=== PATIENT | female | born 1985 | race American Indian/Alaskan Native ===

== ENCOUNTER 2016-12-27 01:34 | Emergency (ER) | payer MEDICAID, OTHER ==
[2016-12-27 02:39] VITALS: BP 137/79
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
[2016-12-27] MEDS ORDERED: TORADOL IM ONE (03:34)
== END 2016-12-27 04:40 | disposition home or self-care (01) ==
LOC: ED 01:34
DX: M54.5 Low back pain (principal); V43.52XA Car driver injured in collision with other type car in traffic accident, initial encounter; Y92.412 Parkway as the place of occurrence of the external cause; Y93.89 Activity, other specified; Y99.8 Other external cause status
CPT/HCPCS: 96372; 99282; J1885

== ENCOUNTER 2017-10-26 01:08 | Emergency (ER) | payer SELFPAY ==
[2017-10-26 06:16] LABS: HCG Qualitative,Urine Positive (Negative)
[2017-10-26 06:20] LABS: Amorphous Crystals,Urine Few; Bacteria,Urine 1+ /HPF (Negative); Bilirubin,Urine NEG (Negative); Blood,Urine MOD (Negative); Color,Urine Yellow (Yellow); Mucus,Urine FEW /HPF; Nitrite,Urine NEG (Negative); Protein,Urine <15 mg/dL mg/dL (Negative); Urobilinogen,Urine < 2.0 mg/dL (<2.0)
[2017-10-26 06:29] VITALS: BP 127/59
== END 2017-10-26 14:00 | disposition left against medical advice (07) ==
LOC: ED 01:08
DX: Z53.21 Procedure and treatment not carried out due to patient leaving prior to being seen by health care provider (principal)
CPT/HCPCS: 81001; 81025

== ENCOUNTER 2019-05-03 16:18 | Outpatient (CLI) | payer MEDICAID ==
[2019-05-03] MEDS ORDERED: TYLENOL PO ONE (17:17)
[2019-05-03 18:26] VITALS: BP 125/56
[2019-05-03 20:05] LABS: Bacteria,Urine 2+ /HPF (Negative); Bilirubin,Urine NEG (Negative); Blood,Urine NEG (Negative); Color,Urine Amber (Yellow); Mucus,Urine 3+ /HPF
--- NOTE | 2019-05-03 20:22 | Ultrasound Report ---
ULTRASOUND BIOPHYSICAL PROFILE Limited OB US Indication: FATUMA; non continuous tracing with questionable ansley. Comparison: None Findings: breathing movement = 2 Gross body movement = 2 tone = 2 Qualitative amniotic fluid volume = 2 Total biophysical score = 8/8 Amniotic fluid index is 15.4 cm. Presentation is cephalic. heart rate is 145 beats per minute. Impression: biophysical profile equals 8/8. Signer Name: Rylan Dunbar MD Signed: 05/03/2019 8:17 PM Workstation Name: [id number]
== END 2019-05-03 20:42 | disposition home or self-care (01) ==
LOC: TRG 16:18
PROVIDERS: ATTEND Obstetrics & Gynecology
DX: O47.03 False labor before 37 completed weeks of gestation, third trimester (principal); Z3A.37 37 weeks gestation of pregnancy
CPT/HCPCS: 59025; 76815; 76819; 81001; 87086

== ENCOUNTER 2019-05-17 12:56 | Outpatient (CLI) | payer MEDICAID ==
[2019-05-17 13:29] VITALS: BP 112/58
== END 2019-05-17 15:00 | disposition home or self-care (01) ==
LOC: TRG 12:56
PROVIDERS: ATTEND Obstetrics & Gynecology
DX: O47.1 False labor at or after 37 completed weeks of gestation (principal); Z3A.39 39 weeks gestation of pregnancy
CPT/HCPCS: 59025

== ENCOUNTER 2019-05-21 08:31 | Outpatient (CLI) | payer MEDICAID ==
[2019-05-21 11:18] VITALS: BP 121/56
[2019-05-21] MEDS ORDERED: VISTARIL PO ONE (12:26)
== END 2019-05-21 11:55 | disposition home or self-care (01) ==
LOC: TRG 08:31
PROVIDERS: ATTEND Obstetrics & Gynecology
DX: O47.1 False labor at or after 37 completed weeks of gestation (principal); Z3A.40 40 weeks gestation of pregnancy
CPT/HCPCS: 59025; Q0177

== ENCOUNTER 2019-05-27 16:45 | Inpatient (IN) | payer MEDICAID ==
[2019-05-27] MEDS ORDERED: XYLOCAINE 2% INFILTRATI ONE (16:53)
[2019-05-27] MEDS ORDERED: BRETHINE IVP PRN (16:53)
[2019-05-27] MEDS ORDERED: MINERAL OIL PO PRN (16:53)
[2019-05-27] MEDS ORDERED: BRETHINE SUB-Q PRN (16:53)
[2019-05-27] MEDS ORDERED: SUBLIMAZE IV PRN (16:53)
[2019-05-27] MEDS ORDERED: PITOCin/NS 30 UNIT/500ML 30 UNITS/500 ML BAG IV SCH ×2 (17:00)
[2019-05-27] MEDS ORDERED: PITOCin/NS 20 UNIT/1000ML DRIP 20 UNITS/1,000 ML BAG IV SCH (17:00)
--- NOTE | 2019-05-27 17:00 | History and Physical Report ---
History of Present Illness Date of examination: 05/27/19 Date of admission: 05/27/19 16:45 Chief complaint: nonreactive NST in office, early labor History of present illness: EDC Calculations LMP: 05/19/2019 Past History : 4 Term Births: 2 Premature Births: 0 Living Children: 2 Para: 2 Mult. Births: 0 Prev : 0 Prev. attempt? 0 Aborta: 1 Elect. Ab: 0 Spont. Ab: 1 Ectopics: 0 # 1 Delivery date: 04/15/2010 Weeks Gestation: 40 labor: no Delivery type: Delivery location: [facility] Infant Sex: Male weight: 6-10 # 2 Delivery date: 05/03/2016 Weeks Gestation: 41 Delivery type: Vaginal Anesthesia type: epidural Delivery location: [facility] Sex: female weight: 7.13 Comments: postdates; meconium # 3 Delivery date: 11/02/2016 Weeks Gestation: 11 Delivery type: SAB Comments: exp. mgmt Past Medical History: Reviewed history from 10/04/2015 and no changes required: Negative Past Medical History migraines. 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 FOB involved "Germán" denies etoh, drugs, previous smoker quit aug 2018 Infection History Hx of STD: chlamydia HIV Risk Eval: low risk Hepatitis B Risk Eval: low risk Personal hx. of genital herpes: no Partner hx. of genital herpes: no Rash, Viral, or Febrile illness since last LMP? no Varicella/Chicken Pox Status: Previous Disease TB Risk: no Infection History Comments: 2009 Genetic History Congenital Heart Defect: Mom: no Dad: no Cristina Disease: Mom: no Dad: no Thalassemia Mom: no Dad: no Neural Tube Defect Mom: no Dad: no Down's Syndrome Mom: no Dad: no Neo-Sachs Mom: no Dad: no Sickle Cell Disease/Trait Mom: no Dad: no Hemophilia Mom: no Dad: no Muscular Dystrophy Mom: no Dad: no Cystic Fibrosis Mom: no Dad: no Alexander Chorea Mom: no Dad: no Mental Retardation Mom: no Dad: no Fragile X Mom: no Dad: no Other Genetic/Chromosomal Disorder Mom: no Dad: no Child w/other defect Mom: no Dad: no Enviromental Exposures Enviromental Exposures Reviewed Xray Exposure: no Medication, drug, or alcohol use since LMP: no Chemical/Other Exposure: no Exposure to Cat Liter: no Hx of Parvovirus (Fifth Disease): no Current Allergies (reviewed today): No known allergies Past History Past Medical History: other (see HPI) Past Surgical History: other (see HPI) 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) Family/Genetic History: other (see HPI) - Obstetrical History Expected Date of Delivery: 05/19/19 Actual Gestation: 41 Week(s) 1 Day(s) : 4 Para: 2 Hx # Term Pregnancies: 2 Number of Pregnancies: 0 Spontaneous Abortions: 1 Induced : 0 Number of Living Children: 2 Medications and Allergies Allergies Allergy/AdvReac Type Severity Reaction Status Date / Time No Known Allergies Allergy Verified 05/03/19 17:20 Home Medications Medication Instructions Recorded Confirmed Last Taken Type Multivit-Min/Folic Acid/[id number] 1 each PO DAILY 05/03/19 05/03/19 Unknown History [Alive Women's Gummy Vitamins] Review of Systems All systems: negative - Physical Exam Breasts: Positive: normal Cardiovascular: Regular rate Lungs: Positive: Clear to auscultation, Normal air movement Abdomen: Positive: normal appearance, soft Genitourinary (Female): Positive: normal external genitalia, normal perenium Vulva: both: normal Vagina: Positive: normal moisture Uterus: Positive: normal size, normal contour Anus/Rectum: Positive: normal perianal skin Extremities: Positive: normal - Obstetrical FHR: category 1 Uterine Contraction Monitor Mode: External Cervical Dilatation: 5 Cervical Effacement Percentage: 80 station: -2 Uterine Contraction Frequency (min): 2-3 Uterine Contraction Duration: 60 Uterine Contraction Pattern: Regular Uterine Tone Measurement Phase: Contraction Uterine Contraction Intensity: Mild Results All other labs normal. Assessment and Plan 33y/o @ 41+1 weeks, admitted for augmentation of labor. Admission orders entered. GBS NEG. Last EFW by [facility] 05/09/19 6#15oz. - Patient Problems (1) 41 weeks gestation of Current Visit: Yes Status: Acute (2) Non-reactive NST (non-stress test) Current Visit: Yes Status: Acute Plan to address problem: continued monitoring Augmentation of labor Epidural PRN. Anticipate .
[2019-05-27] MEDS: LACTATED RINGERS 1,000 ML IV SCH ×2 (17:48→19:05)
[2019-05-27 18:06] LABS: Hemoglobin 9.4 gm/dl (10.1-14.3); Mean Corpuscular HGB Conc 31 % (30-34); Mean Corpuscular Volume 74 fl (79-97); Platelet Count 270 K/mm3 (140-440); Red Blood Count 4.05 M/mm3 (3.65-5.03)
[2019-05-27 18:07] LABS: Red Cell Distribution Width 20.9 % (13.2-15.2)
--- NOTE | 2019-05-27 19:08 | Progress Note ---
Assessment and Plan pt comfortable with epidural SVE 6-7,80,-1 Meconium stained fluid NICU notified Re-eval as needed - Patient Problems (1) Meconium in amniotic fluid Onset Date: ~05/27/19 Current Visit: Yes Status: Acute Plan to address problem: meconium stained fluid NICU notified Subjective - Subjective Date of service: 05/27/19 (comfortable with epidural) Principal diagnosis: IUP @ 41 weeks labor meconium Patient reports: movement normal Objective - Vital Signs Vital Signs: Vital Signs - 12hr 05/27/19 05/27/19 05/27/19 17:04 17:08 18:24 Temperature 98.1 F Pulse Rate 85 82 Respiratory 18 Rate Blood Pressure 133/71 136/70 O2 Sat by Pulse Oximetry 05/27/19 05/27/19 05/27/19 18:27 18:32 18:37 Temperature Pulse Rate 77 78 78 Respiratory Rate Blood Pressure O2 Sat by Pulse 100 100 100 Oximetry 05/27/19 05/27/19 05/27/19 18:42 18:45 18:47 Temperature Pulse Rate 89 84 82 Respiratory Rate Blood Pressure 127/81 O2 Sat by Pulse 94 97 Oximetry 05/27/19 05/27/19 05/27/19 18:49 18:50 18:51 Temperature Pulse Rate 99 H 95 H 92 H Respiratory Rate Blood Pressure 148/78 141/75 O2 Sat by Pulse 62 L Oximetry 05/27/19 05/27/19 05/27/19 18:52 18:53 18:55 Temperature Pulse Rate 94 H 98 H 96 H Respiratory Rate Blood Pressure 139/74 145/68 O2 Sat by Pulse 100 Oximetry 05/27/19 05/27/19 05/27/19 18:57 18:59 19:01 Temperature Pulse Rate 121 H 108 H 122 H Respiratory Rate Blood Pressure 154/90 154/65 O2 Sat by Pulse 100 Oximetry - Exam Breasts: deferred Abdomen: Present: normal appearance, soft. Absent: distention, tenderness Uterus: Present: normal FHR: auscultation normal, category 1 Uterine Contraction Monitor Mode: External Cervical Dilatation: 6.5 (SROM meconium) Cervical Effacement Percentage: 80 station: -1 Uterine Contraction Pattern: Regular Uterine Tone Measurement Phase: Resting Uterine Contraction Intensity: Moderate Extremities: normal Deep Tendon Reflex Grade: Normal +2 - Labs Labs: Abnormal Labs 05/27/19 17:40 Hgb 9.4 L Hct 30.0 L MCV 74 L MCH 23 L RDW 20.9 H Laboratory Results - last 24 hr 05/27/19 05/27/19 17:40 17:40 WBC 8.3 RBC 4.05 Hgb 9.4 L Hct 30.0 L MCV 74 L MCH 23 L MCHC 31 RDW 20.9 H Plt Count 270 Blood Type A POSITIVE Antibody Screen Negative
[2019-05-27] MEDS ORDERED: fentaNYL-BUPIV 2 MCG/ML-0.125% 200 MCG/100 ML BAG EPIDURAL ONE (19:30)
[2019-05-27] MEDS ORDERED: BENADRYL PO PRN (22:09)
[2019-05-27] MEDS ORDERED: TYLENOL PO PRN (22:09)
[2019-05-27] MEDS ORDERED: PHENERGAN PO PRN (22:09)
[2019-05-27] MEDS ORDERED: MILK OF MAGNESIA PO PRN (22:09)
[2019-05-27] MEDS ORDERED: TUCKS PAD TP PRN (22:09)
[2019-05-27] MEDS ORDERED: DULCOLAX PR PRN (22:09)
[2019-05-27] MEDS ORDERED: ZOFRAN IV PRN (22:09)
[2019-05-27] MEDS ORDERED: LANSINOH TP PRN (22:09)
--- NOTE | 2019-05-27 22:20 | Procedure Note ---
OB Delivery Note - Delivery Date of Delivery: 05/27/19 Arts Administrator: GRISELDA SEVILLA Estimated blood loss: 300cc - Vaginal Delivery presentation: vertex Delivery position: OA Intrapartum events: meconium, mult.variable deceleratio Delivery induction: none Delivery augmentation: pitocin Delivery monitor: external uterine, internal FHT Route of delivery: Delivery placenta: spontaneous Delivery cord: 3 umbilical vessels Episiotomy: none Delivery laceration: 2nd degree Delivery repair: vicryl Anesthesia: epidural Delivery comments: deep variables with Q 3-4 ctx SVE C,C,0 NICU team in room with Pt pushed X 23 min live born girl over intact perineum. Baby to mom's abdomen, floppy Cord c lamped and cut passed to waiting NICU team. Placenta and membrane delivered complete and intact, 3 vessel cord. Pitocin IVFs 2nd degree laceration repaired with 2-0 vicryl. 8/9, EBL 300, Wgt 7-12. Placenta to pathology. mom and baby remain LDR stable. - A at 1 minute: 8 at 5 minutes: 9 Infant Gender: Female (wgt 7-12)
[2019-05-27] MEDS ORDERED: SODIUM CHLORIDE FLUSH SYRINGE 10 ML IV NR (23:00)
[2019-05-28] MEDS: IBUPROFEN PO SCH ×3 (00:21→16:32)
[2019-05-28] MEDS ORDERED: NORCO 5/325 PO PRN (02:11)
[2019-05-28] MEDS ORDERED: M-M-R II VACCINE SUB-Q ONE (06:00)
[2019-05-28] MEDS ORDERED: BOOSTRIX IM ONE (06:00)
--- NOTE | 2019-05-28 08:46 | Progress Note ---
Assessment and Plan Patient resting comfortably in bed, reports feeling well, denies any complaints or concerns. FF, ML, U/1. Vaginal bleeding is small, patient denies any heavy bleeding or clots. She reports pain is well controlled with medication. She is breast and bottle feeding, reports both are going well, denies any breast complaints. Awaiting post delivery H&H to be drawn, she denies any dizziness or feeling faint with ambulation or position changes. Encouraged increased water intake, frequent ambulation. VSSAF. Continue POC. Subjective - Subjective Principal diagnosis: PPD1 >12 hrs s/p Patient reports: appetite normal, voiding normally, pain well controlled, ambulating normally : doing well Objective - Vital Signs Latest vital signs: Vital Signs Temp Pulse Resp BP BP Pulse Ox 05/28/19 06:15 98.2 F 68 20 120/54 98 05/28/19 00:47 18 05/28/19 00:10 98.3 F 81 20 134/63 100 05/27/19 23:34 86 88 05/27/19 23:31 80 100 05/27/19 23:26 100 H 99 05/27/19 23:22 93 H 133/60 05/27/19 23:21 94 H 100 05/27/19 23:16 76 99 05/27/19 23:11 96 H 96 05/27/19 23:06 90 136/62 99 05/27/19 23:01 103 H 100 05/27/19 22:57 110 H 93 05/27/19 22:56 100 H 100 05/27/19 22:52 90 135/61 05/27/19 22:51 92 H 98 05/27/19 22:46 93 H 100 05/27/19 22:41 100 H 97 05/27/19 22:39 108 H 91 05/27/19 22:36 101 H 98 05/27/19 22:35 96 H 157/66 05/27/19 22:31 97 H 99 05/27/19 22:26 102 H 98 05/27/19 22:21 101 H 97 05/27/19 22:16 108 H 98 05/27/19 22:11 106 H 99 05/27/19 22:06 109 H 100 05/27/19 21:27 89 100 05/27/19 21:22 66 100 05/27/19 21:17 84 100 05/27/19 21:12 75 100 05/27/19 21:10 77 126/59 05/27/19 21:07 87 100 05/27/19 21:05 74 83 L 05/27/19 21:02 74 100 05/27/19 20:57 83 100 05/27/19 20:52 72 100 05/27/19 20:47 74 100 05/27/19 20:42 78 94 05/27/19 20:40 71 106/53 05/27/19 20:39 76 94 05/27/19 20:37 95 H 98 05/27/19 20:33 77 93 05/27/19 20:32 76 95 05/27/19 20:28 79 L 05/27/19 20:27 86 96 05/27/19 20:22 82 98 05/27/19 20:17 89 95 05/27/19 20:13 18 110/55 05/27/19 20:12 82 99 05/27/19 20:07 88 98 05/27/19 20:02 87 100 05/27/19 20:01 115 H 110/55 05/27/19 19:57 112 H 100 05/27/19 19:53 100 H 121/55 05/27/19 19:52 99 H 100 05/27/19 19:47 103 H 100 05/27/19 19:43 113 H 147/128 05/27/19 19:42 122 H 99 05/27/19 19:37 137 H 98 05/27/19 19:32 111 H 143/63 100 05/27/19 19:27 99 H 100 05/27/19 19:22 117 H 96 05/27/19 19:17 100 H 100 05/27/19 19:13 97.6 F 96 H 18 121/55 05/27/19 19:12 109 H 100 05/27/19 19:11 111 H 222/104 05/27/19 19:09 107 H 154/70 05/27/19 19:07 108 H 100 05/27/19 19:05 111 H 165/74 05/27/19 19:03 110 H 161/70 05/27/19 19:02 121 H 100 05/27/19 19:01 122 H 154/65 05/27/19 18:59 108 H 154/90 05/27/19 18:57 121 H 100 05/27/19 18:55 96 H 145/68 05/27/19 18:53 98 H 139/74 05/27/19 18:52 94 H 100 05/27/19 18:51 92 H 141/75 05/27/19 18:50 95 H 148/78 05/27/19 18:49 99 H 62 L 05/27/19 18:47 82 97 05/27/19 18:45 84 127/81 05/27/19 18:42 89 94 05/27/19 18:37 78 100 05/27/19 18:32 78 100 05/27/19 18:27 77 100 05/27/19 18:24 82 136/70 05/27/19 17:08 85 133/71 05/27/19 17:04 98.1 F 18 Intake and Output 05/27/19 05/28/19 05/28/19 23:59 07:59 15:59 Intake Total 162.517 Output Total 500 1250 Balance -337.483 -1250 Intake: IV 162.517 Lactated Ringers 1,000 ml 160.417 @ 125 mls/hr IV DIRECT MYRTLE Rx#:[id number] PITOCin/NS 30 UNIT/500ML 2.1 30 units In 500 ml @ 4 mls/hr IV TITR MYRTLE Rx#: [id number] Output: Urine 500 1250 Indwelling 200 Indwelling Catheter 300 Void 1250 Other: Total, Output Amount 300 650 Weight 108.409 kg Estimated Blood Loss 300 - Exam Breasts: Present: normal Cardiovascular: Present: Regular rate, Normal S1 Lungs: Present: Clear to auscultation, Normal air movement Abdomen: Present: normal appearance, soft, normal bowel sounds Vulva: both: normal Uterus: Present: normal, firm, fundal height below umbilicus Extremities: Present: normal - Labs Labs: Abnormal lab results 05/27/19 Range/Units 17:40 Hgb 9.4 L (10.1-14.3) gm/dl Hct 30.0 L (30.3-42.9) % MCV 74 L (79-97) fl MCH 23 L (28-32) pg RDW 20.9 H (13.2-15.2) %
[2019-05-28] MEDS: FEOSOL PO SCH (10:03)
[2019-05-28] MEDS: PRENATAL VITAMIN PO SCH (10:03)
[2019-05-28] MEDS: COLACE PO SCH (10:03)
[2019-05-28 11:19] LABS: Hematocrit 27.1 % (30.3-42.9); Hemoglobin 8.7 gm/dl (10.1-14.3)
[2019-05-29] MEDS: FEOSOL PO SCH ×2 (00:03→09:02)
[2019-05-29] MEDS: IBUPROFEN PO SCH ×2 (00:03→07:38)
[2019-05-29] MEDS: COLACE PO SCH ×2 (00:03→09:02)
--- NOTE | 2019-05-29 06:16 | Discharge Summary ---
Providers - Providers Date of Admission: 05/27/19 16:45 Date of discharge: 05/29/19 (pt agrees with d/c) Attending physician: JOSE ALEJANDRO ZAPATA Primary care physician: DANITA LUEVANO Hospitalization Reason for admission: active labor, IUP at term Delivery: Episiotomy: none Laceration: 2nd degree Incision: normal, dry, intact Other procedures: none complications: none Discharge diagnosis: IUP at term delivered baby: female Hospital course: uncomplicated vaginal delivery Resting No c/o voiced VSS FF below umb Lochia small Perineum slight swelling intact. H&H 05/27 drop r/t blood loss from delivery Asymptomatic Doing well s/p vag delivery. P: d/c today with instructions RTO 4 weeks Desires [facility] for BC. Condition at discharge: Good Disposition: DC-01 TO HOME OR SELFCARE - Discharge Diagnoses (1) Normal spontaneous vaginal delivery Status: Acute Comment: RTO 4 weeks PP care Plan - Provider Discharge Summary Activity: routine, no sex for 6 weeks, no heavy lifting 4 weeks, no strenuous exercise Diet: routine Instructions: routine Additional instructions: [] Smoking cessation referral if applicable(refer to patient education folder for contact #) [] Refer to [facility] Booklet Call your doctor immediately for: * Fever > 100.5 * Heavy vaginal bleeding ( >1 pad per hour) * Severe persistent headache * Shortness of breath * Reddened, hot, painful area to leg or breast * Drainage or odor from incision. * Keep incision clean and dry at all times and follow doctor's instructions regarding bathing/showering - Follow up plan Follow up: DANITA LUEVANO MD [Primary Care Provider] - 06/30/19 (Congratulations! Please call [phone] to schedule your visit in 4 weeks. Take Motrin/ibuprofen for cramping/pain. Call with any concerns.)
[2019-05-29 08:23] VITALS: BP 120/54
[2019-05-29] MEDS: PRENATAL VITAMIN PO SCH (09:02)
== END 2019-05-29 12:20 | disposition home or self-care (01) | DRG 775 ==
LOC: LD 16:45 → OB 23:55
PROVIDERS: ADMIT Obstetrics & Gynecology; ATTEND Obstetrics & Gynecology
PROC: 10E0XZZ Delivery of Products of Conception, External Approach (ICD-10-PCS; principal; 2019-05-27)
PROC: 0KQM0ZZ Repair Perineum Muscle, Open Approach (ICD-10-PCS; 2019-05-27)
PROC: 3E0R3BZ Introduction of Anesthetic Agent into Spinal Canal, Percutaneous Approach (ICD-10-PCS; 2019-05-27)
PROC: 00HU33Z Insertion of Infusion Device into Spinal Canal, Percutaneous Approach (ICD-10-PCS; 2019-05-27)
PROC: 3E0234Z Introduction of Serum, Toxoid and Vaccine into Muscle, Percutaneous Approach (ICD-10-PCS; 2019-05-28)
DX: O77.0 Labor and delivery complicated by meconium in amniotic fluid (principal); Z3A.41 41 weeks gestation of pregnancy; Z37.0 Single live birth; Z23 Encounter for immunization; O99.354 Diseases of the nervous system complicating childbirth; G43.909 Migraine, unspecified, not intractable, without status migrainosus; O76 Abnormality in fetal heart rate and rhythm complicating labor and delivery; O70.1 Second degree perineal laceration during delivery
CPT/HCPCS: 36415; 85014; 85018; 85027; 86592; 86850; 86900; 86901; 88307; G0378; J2590; J7120

== ENCOUNTER 2021-04-25 08:14 | Inpatient (IN) | payer MEDICAID ==
[2021-04-25] MEDS ORDERED: miSOPROStol 200 MCG TAB PR PRN (10:13)
[2021-04-25] MEDS ORDERED: MINERAL OIL 30 ML ORAL LIQD PO PRN (10:13)
[2021-04-25] MEDS ORDERED: CARBOPROST TROMETHAMINE 250 MCG/1 ML INJ IM PRN (10:13)
[2021-04-25] MEDS ORDERED: METHYLERGONOVINE MALEATE 0.2 MG/ML VIAL IM PRN (10:13)
[2021-04-25] MEDS ORDERED: LOPERAMIDE 2 MG CAP PO PRN (10:13)
[2021-04-25] MEDS ORDERED: OXYTOCIN 10 UNIT/1 ML INJ IM PRN (10:13)
[2021-04-25] MEDS ORDERED: BUTORPHANOL 2 MG/1 ML INJ IV PRN (10:13)
[2021-04-25] MEDS ORDERED: ONDANSETRON 4 MG/2 ML INJ IV PRN (10:13)
[2021-04-25] MEDS ORDERED: NALOXONE 0.4 MG/1 ML INJ IV PRN (10:13)
[2021-04-25] MEDS ORDERED: TERBUTALINE 1 MG/1 ML INJ SUB-Q PRN (10:13)
[2021-04-25] MEDS ORDERED: ePHEDrine SULFATE 50 MG/1 ML INJ IV PRN ×2 (10:13→14:03)
--- NOTE | 2021-04-25 10:13 | History and Physical Report ---
History of Present Illness Date of examination: 04/25/21 Date of admission: 04/25/21 08:14 Chief complaint: here to be induced History of present illness: EDC Confirmation: 04/14/2021 Past History : 5 Term Births: 3 Premature Births: 0 Living Children: 3 Para: 3 Mult. Births: 0 Prev : 0 Prev. attempt? 0 Aborta: 1 Elect. Ab: 0 Spont. Ab: 1 Ectopics: 0 # 1 Delivery date: 04/15/2010 Weeks Gestation: 40 labor: no Delivery type: Delivery location: [facility] Infant Sex: Male weight: 6-10 # 2 Delivery date: 05/03/2016 Weeks Gestation: 41 Delivery type: Vaginal Anesthesia type: epidural Delivery location: [facility] Infant Sex: female weight: 7.13 Comments: postdates; meconium # 3 Delivery date: 11/02/2016 Weeks Gestation: 11 Delivery type: SAB Comments: exp. mgmt # 4 Delivery date: 05/27/2019 Weeks Gestation: 41 Delivery type: Vaginal Anesthesia type: epidural Delivery location: [facility] Infant Sex: female weight: 7.75 Comments: meconium Past Medical History: migraines. "every other month" Past Surgical History: Reviewed history from 12/06/2018 and no changes required: foot surgery 1998 right Denies any prior history of complications from anesthesia. Denies any history of surgical complications. 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 Denies any history of surgical complications. 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 FOB involved "Germán" denies etoh, drugs, previous smoker quit aug 2018 Infection History Hx of STD: chlamydia HIV Risk Eval: no Hepatitis B Risk Eval: low risk Personal hx. of genital herpes: no Partner hx. of genital herpes: no Rash, Viral, or Febrile illness since last LMP? no Varicella/Chicken Pox Status: Immunized TB Risk: no Genetic History ADVANCED MATERNAL AGE Congenital Heart Defect: Mom: no Dad: no Cristina Disease: Mom: no Dad: no Thalassemia Mom: no Dad: no Neural Tube Defect Mom: no Dad: no Down's Syndrome Mom: no Dad: no Neo-Sachs Mom: no Dad: no Sickle Cell Disease/Trait Mom: no Dad: no Hemophilia Mom: no Dad: no Muscular Dystrophy Mom: no Dad: no Cystic Fibrosis Mom: no Dad: no [place] Chorea Mom: no Dad: no Mental Retardation Mom: no Dad: no Fragile X Mom: no Dad: no Other Genetic/Chromosomal Disorder Mom: no Dad: no Child w/other defect Mom: yes Dad: no Comments/Counseling: son had "heart defect" that resolved brother and aunt with sickle cell trait; pt denies personal Dx Enviromental Exposures Enviromental Exposures Reviewed Xray Exposure: no Medication, drug, or alcohol use since LMP: no Chemical/Other Exposure: no Exposure to Cat Liter: no Hx of Parvovirus (Fifth Disease): no Occupational Exposure to Children: none FALSECurrent Allergies (reviewed today): No known allergies Current Medications (including medications started today): PLUS 27-1 MG ORAL TABLET ( VIT-FE FUMARATE-FA) 1 po; Route: ORAL Past History Past Medical History: other (see HPI) Past Surgical History: other (see HPI) 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) Family/Genetic History: other (see HPI) Social history: other (see HPI) - Obstetrical History Expected Date of Delivery: 04/14/21 Actual Gestation: 41 Week(s) 4 Day(s) : 5 Para: 3 Hx # Term Pregnancies: 3 Number of Pregnancies: 0 Spontaneous Abortions: 1 Induced : 0 Number of Living Children: 3 Medications and Allergies Allergies Allergy/AdvReac Type Severity Reaction Status Date / Time No Known Allergies Allergy Verified 04/25/21 08:52 Home Medications Medication Instructions Recorded Confirmed Last Taken Type Multivit-Min/Folic Acid/[id number] 1 each PO DAILY 05/03/19 04/25/21 04/23/21 10:00 History [Alive Women's Gummy Vitamins] Review of Systems All systems: negative Genitourinary: contractions - Vital Signs Vital signs: Vital Signs Pulse BP 80 119/57 04/25/21 08:50 04/25/21 08:50 Temp Pulse Resp BP Pulse Ox 87 127/63 99 04/25/21 10:08 04/25/21 09:52 04/25/21 10:08 - Physical Exam Breasts: Positive: normal Cardiovascular: Regular rate Lungs: Positive: Clear to auscultation, Normal air movement Abdomen: Positive: normal appearance, soft Genitourinary (Female): Positive: normal external genitalia, normal perenium Vulva: both: normal Vagina: Positive: normal moisture Uterus: Positive: normal size, normal contour Anus/Rectum: Positive: normal perianal skin Extremities: Positive: normal - Obstetrical FHR: auscultation normal, category 1 Uterine Contraction Monitor Mode: External Cervical Dilatation: 3 Cervical Effacement Percentage: 30 station: -1 Uterine Contraction Pattern: Irregular Uterine Tone Measurement Phase: Resting Results Result Diagrams: 04/25/21 09:40 All other labs normal. GBS negative Tests: (1) Profile I ([id number]) Order Note: Clinical Information: SRC:UR HBsAg Screen Negative Negative *1 RPR Non Reactive Non Reactive *2 Rubella Antibodies, IgG [L] <0.90 index Immune >0.99 *3 NON IMMUNE Equivocal 0.90 - 0.99 Immune >0.99 ABO Grouping A *4 Rh Factor Positive *5 Please note: Prior records for this patient's ABO / Rh type are not available for additional verification. Antibody Screen Negative Negative *6 WBC 6.9 x10E3/uL 3.4-10.8 *7 RBC 3.79 x10E6/uL 3.77-5.28 *8 Hemoglobin [L] 9.2 g/dL 11.1-15.9 *9 Hematocrit [L] 29.5 % 34.0-46.6 *10 MCV [L] 78 fL 79-97 *11 MCH [L] 24.3 pg 26.6-33.0 *12 MCHC [L] 31.2 g/dL 31.5-35.7 *13 RDW [H] 18.0 % 11.7-15.4 *14 Platelets 265 x10E3/uL 150-450 *15 Neutrophils 76 % Not Estab. *16 Lymphs 18 % Not Estab. *17 Monocytes 4 % Not Estab. *18 Eos 2 % Not Estab. *19 Basos 0 % Not Estab. *20 ! Immature Cells <No Reported Value> *21 Neutrophils (Absolute) 5.2 x10E3/uL 1.4-7.0 *22 Lymphs (Absolute) 1.2 x10E3/uL 0.7-3.1 *23 Monocytes(Absolute) 0.3 x10E3/uL 0.1-0.9 *24 Eos (Absolute) 0.1 x10E3/uL 0.0-0.4 *25 Baso (Absolute) 0.0 x10E3/uL 0.0-0.2 *26 ! Immature Granulocytes 0 % Not Estab. *27 ! Immature Grans (Abs) 0.0 x10E3/uL 0.0-0.1 *28 ! NRBC <No Reported Value> *29 Hematology Comments: <No Reported Value> *30 Tests: (2) HB Solu + Rflx Fra ([id number]) Hemoglobin (Hgb) Solubility Negative Negative *31 Tests: (3) HIV Ag/Ab with Reflex ([id number]) HIV Screen 4th Generation wRfx Non Reactive Non Reactive *32 Tests: (4) Gest. Diabetes 1-Hr Screen ([id number]) ! Gestational Diabetes Screen 81 mg/dL 65-139 *33 According to ADA, a glucose threshold of >139 mg/dL after 50-gram load identifies approximately 80% of women with gestational diabetes mellitus, while the sensitivity is further increased to approximately 90% by a threshold of >129 mg/dL. Tests: (5) HCV Ab w/Rflx to Verification ([id number]) ! HCV Ab <0.1 s/co ratio 0.0-0.9 *34 Tests: (6) Comment: ([id number]) ! Comment: SPRCS *35 Non reactive HCV antibody screen is consistent with no HCV infection, unless recent infection is suspected or other evidence exists to indicate HCV infection. Tests: (7) Urine Culture, Routine ([id number]) Urine Culture, Routine Final report *36 Tests: (8) Result ([id number]) ! Result 1 MUG *37 Mixed urogenital soha 25,000-50,000 colony forming units per mL Assessment and Plan Pt presents for postdates IOL with c/o irregular contractions. SVE 3/30%/-1 VTX; pt tolerated exam well. POC d/w pt and family member and orders placed in EMR. All questions and concerns addressed. Sherlyn GARCIA made aware of exam and orders placed to start Pitocin induction per protocol. Anticipate - Patient Problems (1) Encounter for induction of labor Current Visit: Yes Status: Acute (2) Rubella non-immune status, antepartum Current Visit: Yes Status: Acute (3) 41 weeks gestation of Current Visit: No Status: Acute
[2021-04-25 10:31] LABS: Hemoglobin 10.2 gm/dl (10.1-14.3); Mean Corpuscular HGB Conc 33 % (30-34); Mean Corpuscular Volume 80 fl (79-97); Platelet Count 206 K/mm3 (140-440); Red Blood Count 3.86 M/mm3 (3.65-5.03); Red Cell Distribution Width 17.6 % (13.2-15.2)
[2021-04-25] MEDS: LACTATED RINGERS 1,000 ML IV SCH ×2 (10:35→18:51)
[2021-04-25] MEDS: OXYTOCIN DRIP 30 UNITS/500 ML BAG IV SCH ×2 (10:50→22:30)
[2021-04-25] MEDS ORDERED: LIDOCAINE (2%) 20 MG/1 ML VIAL 20 ML MDV INFILTRATI ONE ×2 (11:00→21:55)
[2021-04-25] MEDS ORDERED: OXYTOCIN DRIP 30 UNITS/500 ML BAG IV SCH (11:00)
--- NOTE | 2021-04-25 14:01 | Anesthesia Consultation ---
Anesthesia Consult and Med Hx Date of service: 04/25/21 - Airway Anesthetic Teeth Evaluation: Poor ROM Head & Neck: Adequate Mental/Hyoid Distance: Adequate Mallampati Class: Class II Intubation Access Assessment: Probably Good - Pulmonary Exam CTA: Yes - Cardiac Exam Cardiac Exam: RRR - Pre-Operative Health Status ASA Pre-Surgery Classification: ASA2 Proposed Anesthetic Plan: Epidural - Pulmonary Hx Smoking: No Hx Asthma: No Hx Respiratory Symptoms: No SOB: No COPD: No Home Oxygen Therapy: No Hx Pneumonia: No Hx Sleep Apnea: No - Cardiovascular System Hx Hypertension: No Hx Coronary Artery Disease: No Hx Heart Attack/AMI: No Hx Angina: No (reports CP with "unable to describe" primary team informed.) Hx Percutaneous Transluminal Coronary Angioplasty (PTCA): No Hx Cardia Arrhythmia: Yes (palpitations) Hx Pacemaker: No Hx Internal Defibrillator: No Hx Valvular Heart Disease: No Hx Heart Murmur: No Hx Peripheral Vascular Disease: No - Central Nervous System Hx Neuromuscular Disorder: No Hx Seizures: No CVA: No Hx Back Pain: Yes Hx Psychiatric Problems: No - Gastrointestinal Hx Ulcer: No Hx Gastroesophageal Reflux Disease: Yes - Endocrine Hx Renal Disease: No Hx End Stage Renal Disease: No Hx Cirrhosis: No Hx Liver Disease: No Hx Insulin Dependent Diabetes: No Hx Non-Insulin Dependent Diabetes: No Hx Thyroid Disease: No Hx Hypothyroidism: No Hx Hyperthyroidism: No - Hematic Hx Anemia: Yes Hx Sickle Cell Disease: No - Other Systems Hx Alcohol Use: No Hx Substance Use: No Hx Cancer: No Hx Obesity: Yes
[2021-04-25] MEDS ORDERED: NALOXONE 2 MG/2 ML INJ IV PRN (14:03)
[2021-04-25] MEDS ORDERED: fentaNYL-BUPIV 2 MCG/ML-0.125% 200 MCG/100 ML BAG EPIDURAL SCH (15:00)
--- NOTE | 2021-04-25 16:52 | Event Note ---
Date: 04/25/21 CNM to bedside. Pt requesting vaginal exam. Risks and benefits of AROM d/w pt; pt declines AROM at this time. SVE 5/50%/-2, CAT 1 FHT's with regular contractions noted. POC discussed with pt and support persons. Continue monitoring, Pitocin induction per protocol, and labor pain management PRN. Anticipate
--- NOTE | 2021-04-25 19:06 | Event Note ---
Date: 04/25/21 Notified by ISSA Rodrigues of elevated blood pressures. Review of vitals show one systolic in the sever range. Advised to start magnesium sulfate until delivery at 2g/hr. She expressed understanding and all questions were addressed.
[2021-04-25] MEDS ORDERED: MAGNESIUM SULFATE 40GM/1000ML 40 GM/1,000 ML BAG IV ONE (19:20)
--- NOTE | 2021-04-25 19:34 | Progress Note ---
Assessment and Plan CNM to BS during deceleration, FHT's resuscitated with routine measures, Pitocin turned off by RN, +scalp stim noted and SVE 6/60/-2. BP elevated and Pt reports mild headache she feels is subsequent to a toothache today. POC discussed with pt for labs and seizure precautions prophylaxis; Dx of Preeclampsia discussed in length with pt and family members. Labor progression, previous deliveries and outcomes, current EFW with related risks, and possible need for d/w pt and family in length. All questions and concerns addressed. Pt verbalizes understanding and declines , epidural, AROM and internal monitoring at this time. FHT's CAT [address] Lares consulted for POC - Patient Problems (1) Encounter for induction of labor Current Visit: Yes Status: Acute (2) Rubella non-immune status, antepartum Current Visit: Yes Status: Acute (3) 41 weeks gestation of Current Visit: No Status: Acute (4) Preeclampsia Current Visit: Yes Status: Acute Plan to address problem: Draw labs start Magnesium Sulfate 2gm/hr IV now and continue until 24hours post delivery Continue monitoring closely notify provider with any changes in status Subjective - Subjective Date of service: 04/25/21 Principal diagnosis: PD IOL, Preeclampsia Interval history: EDC Confirmation: 04/14/2021 Past History : 5 Term Births: 3 Premature Births: 0 Living Children: 3 Para: 3 Mult. Births: 0 Prev : 0 Prev. attempt? 0 Aborta: 1 Elect. Ab: 0 Spont. Ab: 1 Ectopics: 0 # 1 Delivery date: 04/15/2010 Weeks Gestation: 40 labor: no Delivery type: Delivery location: [facility] Infant Sex: Male weight: 6-10 # 2 Delivery date: 05/03/2016 Weeks Gestation: 41 Delivery type: Vaginal Anesthesia type: epidural Delivery location: [facility] Sex: female weight: 7.13 Comments: postdates; meconium # 3 Delivery date: 11/02/2016 Weeks Gestation: 11 Delivery type: SAB Comments: exp. mgmt # 4 Delivery date: 05/27/2019 Weeks Gestation: 41 Delivery type: Vaginal Anesthesia type: epidural Delivery location: [facility] Sex: female weight: 7.75 Comments: meconium Past Medical History: migraines. "every other month" Past Surgical History: Reviewed history from 12/06/2018 and no changes required: foot surgery 1998 right Denies any prior history of complications from anesthesia. Denies any history of surgical complications. 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 Denies any history of surgical complications. 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 FOB involved "Germán" denies etoh, drugs, previous smoker quit aug 2018 Infection History Hx of STD: chlamydia HIV Risk Eval: no Hepatitis B Risk Eval: low risk Personal hx. of genital herpes: no Partner hx. of genital herpes: no Rash, Viral, or Febrile illness since last LMP? no Varicella/Chicken Pox Status: Immunized TB Risk: no Genetic History ADVANCED MATERNAL AGE Congenital Heart Defect: Mom: no Dad: no Cristina Disease: Mom: no Dad: no Thalassemia Mom: no Dad: no Neural Tube Defect Mom: no Dad: no Down's Syndrome Mom: no Dad: no Neo-Sachs Mom: no Dad: no Sickle Cell Disease/Trait Mom: no Dad: no Hemophilia Mom: no Dad: no Muscular Dystrophy Mom: no Dad: no Cystic Fibrosis Mom: no Dad: no [place] Chorea Mom: no Dad: no Mental Retardation Mom: no Dad: no Fragile X Mom: no Dad: no Other Genetic/Chromosomal Disorder Mom: no Dad: no Child w/other defect Mom: yes Dad: no Comments/Counseling: son had "heart defect" that resolved brother and aunt with sickle cell trait; pt denies personal Dx Enviromental Exposures Enviromental Exposures Reviewed Xray Exposure: no Medication, drug, or alcohol use since LMP: no Chemical/Other Exposure: no Exposure to Cat Liter: no Hx of Parvovirus (Fifth Disease): no Occupational Exposure to Children: none FALSECurrent Allergies (reviewed today): No known allergies Current Medications (including medications started today): PLUS 27-1 MG ORAL TABLET ( VIT-FE FUMARATE-FA) 1 po; Route: ORAL Patient reports: new complaints Objective - Vital Signs Vital Signs: Vital Signs - 12hr 04/25/21 04/25/21 04/25/21 08:50 09:00 09:03 Temperature 99.2 F Pulse Rate 80 113 H Respiratory 20 Rate Blood Pressure 119/57 O2 Sat by Pulse 100 Oximetry 04/25/21 04/25/21 04/25/21 09:08 09:13 09:18 Temperature Pulse Rate 119 H 95 H 91 H Respiratory Rate Blood Pressure O2 Sat by Pulse 100 99 99 Oximetry 04/25/21 04/25/21 04/25/21 09:21 09:23 09:28 Temperature Pulse Rate 108 H 92 H 106 H Respiratory Rate Blood Pressure 127/68 O2 Sat by Pulse 99 99 Oximetry 04/25/21 04/25/21 04/25/21 09:33 09:38 09:43 Temperature Pulse Rate 107 H 96 H 80 Respiratory Rate Blood Pressure O2 Sat by Pulse 98 98 99 Oximetry 04/25/21 04/25/21 04/25/21 09:48 09:52 09:53 Temperature Pulse Rate 85 87 92 H Respiratory Rate Blood Pressure 127/63 O2 Sat by Pulse 99 99 Oximetry 04/25/21 04/25/21 04/25/21 09:58 10:03 10:08 Temperature Pulse Rate 88 107 H 87 Respiratory Rate Blood Pressure O2 Sat by Pulse 99 100 99 Oximetry 04/25/21 04/25/21 04/25/21 10:13 10:18 10:21 Temperature Pulse Rate 78 87 96 H Respiratory Rate Blood Pressure 125/85 O2 Sat by Pulse 99 99 Oximetry 04/25/21 04/25/21 04/25/21 10:23 10:28 10:33 Temperature Pulse Rate 81 98 H 95 H Respiratory Rate Blood Pressure O2 Sat by Pulse 98 99 99 Oximetry 04/25/21 04/25/21 04/25/21 10:38 10:43 10:48 Temperature Pulse Rate 94 H 88 86 Respiratory Rate Blood Pressure O2 Sat by Pulse 99 99 99 Oximetry 04/25/21 04/25/21 04/25/21 10:51 11:05 11:10 Temperature Pulse Rate 106 H 85 93 H Respiratory Rate Blood Pressure 118/74 O2 Sat by Pulse 99 99 Oximetry 04/25/21 04/25/21 04/25/21 11:15 11:20 11:21 Temperature Pulse Rate 90 95 H 103 H Respiratory Rate Blood Pressure 141/57 O2 Sat by Pulse 99 99 Oximetry 04/25/21 04/25/21 04/25/21 11:25 11:30 11:35 Temperature Pulse Rate 96 H 90 82 Respiratory Rate Blood Pressure O2 Sat by Pulse 100 99 99 Oximetry 04/25/21 04/25/21 04/25/21 11:40 11:45 11:50 Temperature Pulse Rate 87 96 H 90 Respiratory Rate Blood Pressure O2 Sat by Pulse 99 100 99 Oximetry 04/25/21 04/25/21 04/25/21 11:51 11:55 12:00 Temperature Pulse Rate 85 89 86 Respiratory Rate Blood Pressure 115/56 O2 Sat by Pulse 100 99 Oximetry 04/25/21 04/25/21 04/25/21 12:05 12:10 12:15 Temperature Pulse Rate 82 82 79 Respiratory Rate Blood Pressure O2 Sat by Pulse 99 99 100 Oximetry 04/25/21 04/25/21 04/25/21 12:20 12:22 12:23 Temperature Pulse Rate 102 H 97 H 86 Respiratory Rate Blood Pressure 119/64 140/65 O2 Sat by Pulse 99 Oximetry 04/25/21 04/25/21 04/25/21 12:25 12:30 12:35 Temperature Pulse Rate 85 82 90 Respiratory Rate Blood Pressure 129/59 O2 Sat by Pulse 100 99 100 Oximetry 04/25/21 04/25/21 04/25/21 12:46 12:47 12:51 Temperature Pulse Rate 87 91 H 80 Respiratory Rate Blood Pressure 123/58 132/55 O2 Sat by Pulse 100 99 Oximetry 04/25/21 04/25/21 04/25/21 12:56 13:01 13:06 Temperature Pulse Rate 88 90 98 H Respiratory Rate Blood Pressure O2 Sat by Pulse 100 98 100 Oximetry 04/25/21 04/25/21 04/25/21 13:11 13:16 13:21 Temperature Pulse Rate 85 87 87 Respiratory Rate Blood Pressure 121/66 O2 Sat by Pulse 100 100 99 Oximetry 04/25/21 04/25/21 04/25/21 13:26 13:31 13:36 Temperature Pulse Rate 91 H 93 H 86 Respiratory Rate Blood Pressure O2 Sat by Pulse 98 100 99 Oximetry 04/25/21 04/25/21 04/25/21 13:41 13:46 13:51 Temperature Pulse Rate 89 96 H 90 Respiratory Rate Blood Pressure 122/72 O2 Sat by Pulse 100 99 99 Oximetry 04/25/21 04/25/21 04/25/21 13:56 14:01 14:06 Temperature Pulse Rate 87 86 92 H Respiratory Rate Blood Pressure O2 Sat by Pulse 99 100 97 Oximetry 04/25/21 04/25/21 04/25/21 14:11 14:16 14:21 Temperature Pulse Rate 89 110 H 89 Respiratory Rate Blood Pressure 132/71 O2 Sat by Pulse 99 100 99 Oximetry 04/25/21 04/25/21 04/25/21 14:26 14:31 14:36 Temperature Pulse Rate 92 H 113 H 82 Respiratory Rate Blood Pressure O2 Sat by Pulse 99 95 99 Oximetry 04/25/21 04/25/21 04/25/21 14:41 14:56 15:01 Temperature Pulse Rate 99 H 106 H 97 H Respiratory Rate Blood Pressure O2 Sat by Pulse 100 97 99 Oximetry 04/25/21 04/25/21 04/25/21 15:06 15:11 15:16 Temperature Pulse Rate 96 H 95 H 102 H Respiratory Rate Blood Pressure O2 Sat by Pulse 99 99 99 Oximetry 04/25/21 04/25/21 04/25/21 15:21 15:22 15:26 Temperature Pulse Rate 86 96 H 99 H Respiratory Rate Blood Pressure 130/69 O2 Sat by Pulse 99 99 Oximetry 04/25/21 04/25/21 04/25/21 15:31 15:36 15:41 Temperature Pulse Rate 88 98 H 101 H Respiratory Rate Blood Pressure O2 Sat by Pulse 99 99 99 Oximetry 04/25/21 04/25/21 04/25/21 15:46 15:51 15:56 Temperature Pulse Rate 99 H 105 H 110 H Respiratory Rate Blood Pressure 132/67 O2 Sat by Pulse 99 98 99 Oximetry 04/25/21 04/25/21 04/25/21 16:01 16:12 16:17 Temperature Pulse Rate 104 H 96 H 112 H Respiratory Rate Blood Pressure O2 Sat by Pulse 100 100 100 Oximetry 04/25/21 04/25/21 04/25/21 16:22 16:23 16:27 Temperature Pulse Rate 100 H 98 H 110 H Respiratory Rate Blood Pressure 132/75 O2 Sat by Pulse 98 98 Oximetry 04/25/21 04/25/21 04/25/21 16:32 16:37 16:42 Temperature Pulse Rate 116 H 104 H 111 H Respiratory Rate Blood Pressure O2 Sat by Pulse 97 98 99 Oximetry 04/25/21 04/25/21 04/25/21 16:47 16:51 16:52 Temperature Pulse Rate 101 H 113 H 102 H Respiratory Rate Blood Pressure 120/81 O2 Sat by Pulse 98 98 Oximetry 04/25/21 04/25/21 04/25/21 16:57 17:02 17:07 Temperature Pulse Rate 144 H 100 H 112 H Respiratory Rate Blood Pressure O2 Sat by Pulse 100 98 99 Oximetry 04/25/21 04/25/21 04/25/21 17:12 17:17 17:22 Temperature Pulse Rate 108 H 102 H 107 H Respiratory Rate Blood Pressure O2 Sat by Pulse 100 99 100 Oximetry 04/25/21 04/25/21 04/25/21 17:27 17:32 17:37 Temperature Pulse Rate 103 H 108 H 104 H Respiratory Rate Blood Pressure O2 Sat by Pulse 100 99 99 Oximetry 04/25/21 04/25/21 04/25/21 17:42 17:47 17:52 Temperature Pulse Rate 115 H 103 H 107 H Respiratory Rate Blood Pressure 130/70 O2 Sat by Pulse 98 99 98 Oximetry 04/25/21 04/25/21 04/25/21 17:57 18:02 18:07 Temperature Pulse Rate 114 H 98 H 101 H Respiratory Rate Blood Pressure O2 Sat by Pulse 100 100 99 Oximetry 04/25/21 04/25/21 04/25/21 18:12 18:18 18:22 Temperature Pulse Rate 106 H 110 H 110 H Respiratory Rate Blood Pressure O2 Sat by Pulse 99 98 99 Oximetry 04/25/21 04/25/21 04/25/21 18:23 18:27 18:30 Temperature Pulse Rate 109 H 111 H 99 H Respiratory Rate Blood Pressure 163/84 145/63 O2 Sat by Pulse 99 Oximetry 04/25/21 04/25/21 04/25/21 18:32 18:37 18:42 Temperature Pulse Rate 114 H 109 H 101 H Respiratory Rate Blood Pressure O2 Sat by Pulse 99 100 99 Oximetry 04/25/21 04/25/21 04/25/21 18:47 18:51 19:21 Temperature Pulse Rate 100 H 111 H 105 H Respiratory Rate Blood Pressure 137/70 132/65 O2 Sat by Pulse 100 Oximetry - Exam Breasts: deferred Cardiovascular: Regular rate Lungs: Clear to auscultation, Normal air movement Abdomen: Present: normal appearance, soft Vulva: both: normal Uterus: Present: normal FHR: category 2 FHR comments: decels noted and resuscitated while CNM at bedside Uterine Contraction Monitor Mode: External Cervical Dilatation: 6 Cervical Effacement Percentage: 60 station: -2 Uterine Contraction Pattern: Regular Uterine Tone Measurement Phase: Contraction Uterine Contraction Intensity: Moderate Extremities: normal - Labs Labs: Abnormal Labs 04/25/21 09:40 MCH 27 L RDW 17.6 H Laboratory Results - last 24 hr 04/25/21 04/25/21 04/25/21 09:40 09:40 09:40 WBC 7.9 RBC 3.86 Hgb 10.2 Hct 31.0 MCV 80 MCH 27 L MCHC 33 RDW 17.6 H Plt Count 206 Syphilis IgG Antibody Nonreactive Coronavirus (PCR) Blood Type A POSITIVE Antibody Screen Negative 04/25/21 09:45 WBC RBC Hgb Hct MCV MCH MCHC RDW Plt Count Syphilis IgG Antibody Coronavirus (PCR) Negative Blood Type Antibody Screen
[2021-04-25 21:08] LABS: Alanine Aminotransferase 13 units/L (7-56); Uric Acid 3.5 mg/dL (3.5-7.6)
[2021-04-26] MEDS ORDERED: BICITRA ORAL LIQD 30ML ONE (01:15)
[2021-04-26] MEDS ORDERED: BICITRA ORAL LIQD 30ML PO ONE (01:15)
[2021-04-26] MEDS ORDERED: METOCLOPRAMIDE 10 MG/2 ML INJ IV ONE (01:15)
[2021-04-26] MEDS ORDERED: LACTATED RINGERS 1,000 ML IV SCH (01:15)
[2021-04-26] MEDS ORDERED: FAMOTIDINE 20 MG/2 ML INJ IV ONE ×2 (01:15→01:16)
[2021-04-26] MEDS ORDERED: METOCLOPRAMIDE 10 MG/2 ML INJ ONE (01:15)
--- NOTE | 2021-04-26 01:15 | Event Note ---
Date: 04/26/21 SVE 8cm and unchanged, now ballotable; Internal monitors and/or epidural placement offered and risks vs benefits discussed again in length with pt. Pt declines internal monitoring and epidural. section recommended for failure to progress, risks discussed including but not limited to maternal and/or , injury to organs, infection, and bleeding. Pt verbalizes understanding and agrees to section. Dr Lares made aware and consulted for POC. Consents signed and orders placed in EMR. Plan to proceed with operative delivery.
[2021-04-26] MEDS: ACETAMINOPHEN 325 MG TAB PO PRN (01:52)
[2021-04-26] MEDS ORDERED: ceFAZolin/Water 2 GM/20 ML 2 GM/20 ML SYRINGE IV NR (02:00)
[2021-04-26] MEDS ORDERED: OXYTOCIN DRIP 30 UNITS/500 ML BAG IV SCH (02:00)
[2021-04-26] MEDS ORDERED: HYDROmorphone 1 MG/1 ML INJ IV PRN ×2 (03:41)
[2021-04-26] MEDS ORDERED: ONDANSETRON 4 MG/2 ML INJ IV PRN (03:41)
[2021-04-26] MEDS ORDERED: NALOXONE 0.4 MG/1 ML INJ IV PRN (03:41)
--- NOTE | 2021-04-26 03:41 | Anesthesia Consultation ---
Anesthesia Consult and Med Hx Date of service: 04/26/21 - Airway Anesthetic Teeth Evaluation: Good ROM Head & Neck: Adequate Mental/Hyoid Distance: Adequate Mallampati Class: Class II Intubation Access Assessment: Good - Pulmonary Exam CTA: Yes - Cardiac Exam Cardiac Exam: RRR - Pre-Operative Health Status ASA Pre-Surgery Classification: ASA2 Proposed Anesthetic Plan: Spinal - Pulmonary Hx Smoking: No Hx Asthma: No Hx Respiratory Symptoms: No SOB: No COPD: No Home Oxygen Therapy: No Hx Pneumonia: No Hx Sleep Apnea: No - Cardiovascular System Hx Hypertension: No Hx Coronary Artery Disease: No Hx Heart Attack/AMI: No Hx Angina: No (reports CP with "unable to describe" primary team informed.) Hx Percutaneous Transluminal Coronary Angioplasty (PTCA): No Hx Cardia Arrhythmia: Yes (palpitations) Hx Pacemaker: No Hx Internal Defibrillator: No Hx Valvular Heart Disease: No Hx Heart Murmur: No Hx Peripheral Vascular Disease: No - Central Nervous System Hx Neuromuscular Disorder: No Hx Seizures: No CVA: No Hx Back Pain: Yes Hx Psychiatric Problems: No - Gastrointestinal Hx Ulcer: No Hx Gastroesophageal Reflux Disease: Yes - Endocrine Hx Renal Disease: No Hx End Stage Renal Disease: No Hx Cirrhosis: No Hx Liver Disease: No Hx Insulin Dependent Diabetes: No Hx Non-Insulin Dependent Diabetes: No Hx Thyroid Disease: No Hx Hypothyroidism: No Hx Hyperthyroidism: No - Hematic Hx Anemia: Yes Hx Sickle Cell Disease: No - Other Systems Hx Alcohol Use: No Hx Substance Use: No Hx Cancer: No Hx Obesity: Yes
--- NOTE | 2021-04-26 03:41 | Anesthesia Day of Surgery ---
Anesthesia Day of Surgery - Day of Surgery Patient Examined: Yes Patient H&P Reviewed: Yes Patient is NPO: Yes Beta Blockers: No Cardiac Clearance: No Pulmonary Clearance: No Govind's Test: N/A
[2021-04-26] MEDS ORDERED: PHENYLEPHRINE 10 MG/1 ML INJ SDV ONE (04:06)
[2021-04-26] MEDS ORDERED: dexAMETHasone 20 MG/5 ML VIAL ONE (04:24)
[2021-04-26] MEDS ORDERED: SODIUM CHLORIDE 0.9% 100 ML ONE (04:24)
[2021-04-26] MEDS ORDERED: ONDANSETRON 4 MG/2 ML INJ ONE ×2 (04:25)
[2021-04-26] MEDS ORDERED: BUPIVACAINE/PF (0.5%) 5 MG/1 ML 30 ML VIAL INFILTRATI ONE (04:26)
[2021-04-26] MEDS ORDERED: KETOROLAC 30 MG/1 ML INJ ONE ×2 (04:36→08:02)
[2021-04-26] MEDS ORDERED: LANOLIN/ZINC/DIMETHICONE (LANSINOH) 7 GM TP PRN (04:54)
[2021-04-26] MEDS ORDERED: WITCH HAZEL/ GLYCERIN PAD TP PRN (04:54)
[2021-04-26] MEDS ORDERED: HYDROcodone/ACETAMINOPHEN 5-325 MG TAB PO PRN (04:54)
--- NOTE | 2021-04-26 05:04 | Operative Report ---
Operative Report Operative Report: Date of procedure: 04/26/2021 Pre-operative diagnosis: 41 weeks gestation Arrest of labor bradycardia Elevated blood pressures Post-operative diagnosis: Same Procedure name(s): Stat primary low transverse section via Pfannenstiel skin incision Surgeon: Dr. Lares Emt: Anat Yoon CNM Anesthesia: Spinal EBL: 579ml is QBL Urine output: 300ml of clear urine out and end of procedure. Fluids: 1200ml Findings: Liveborn male infant weight 8 pounds 9 ounces Apgars of 8 and 9 at 1 and 5 minutes Multiple 1 cm fibroids noted on the fundal surface and anterior surface of the uterus Indications: Patient brought in for induction of labor due to postdates. During the labor process patient was noted to have elevated blood pressures and was treated with magnesium sulfate. Patient progressed approximately 8 cm and remained 8 cm for more than 4 hours. Decision was made to proceed with primary section. Upon entry into the operating room and placement of spinal patient was noted to have bradycardia in the 60s. Decision was made to proceed at this time with stat section. Procedure: Patient was taking to the operating room. Patient was then prepped and draped in sterile fashion after anesthesia was found to be adequate. A low transverse skin incision was made with the scalpel and carried down to the underlying layer of fascia with the Bovie. The fascia was then incised in the midline and this incision was extended bilaterally with the scalpel The rectus muscles were then bluntly divided in the midline. The peritoneum was identified and entered into sharply. A lower transverse uterine incision was made with the scalpel and extended bilaterally with the blunt dissection. Entry into the uterus yielded clear amniotic fluid. The infant's head was then delivered atraumatically. The anterior shoulder and rest of infant delivered without difficulty. The umbilical cord was clamped x2. The cord was cut. The infant was then placed in sterile bassinet. Terminal meconium was noted upon delivery of the infant. [The cord blood was collected.] The placenta was manually extracted in its entirety. The uterus was exteriorized and cleared of all clots and debris. The uterine incision was closed using 0 Vicryl in a running locking fashion. Several iclkml-ca-amntr sutures using 0 Vicryl were placed along the uterine incision with excellent hemostasis noted. The posterior cul-de-sac was copiously irrigated. The uterus was returned to the abdomen. He mobilized was placed along the uterine incision with excellent hemostasis noted. The gutters were also irrigated. The anterior rectus muscles were reapproximated using 3-0 Vicryl. The anterior rectus fascia was reapproximated using 0 Vicryl in a running fashion. The subcuticular fat was reapproximated using 2-0 Vicryl in a running fashion. The skin was reapproximated with 4-0 Monocryl in a subcuticular stitch. The patient tolerated the procedure well. Sponge lap and needle counts were all correct x3. Patient was taken to the recovery room awake and in stable condition.
--- NOTE | 2021-04-26 05:21 | Progress Note ---
Spinal Anesthesia Block - Spinal Anesthesia Block Start Time: 03:51 Stop Time: 03:55 Performed by:: ZANDER MENDIETA Procedure: Patient IDed, H&P reviewed, all questions and concerns were answered, and consent was signed. Timeout was performed at bedside. Patient in sitting position. Sterile prep and drape was performed. [3] ml of 1% lidocaine skin wheal at L[3]- L [4]. Needle introducer advanced. 25 gauge spinal needle advanced. Clear, free flowing CSF. negative blood, negative paresthesia. Spinal dose given. All needles removed. Patient tolerated procedure.
--- NOTE | 2021-04-26 05:23 | Progress Note ---
Regional Anesthesia Block - Regional Anesthesia Block Start Time: 05:09 Stop Time: 05:19 Performed By:: ZANDER MENDIETA Procedure: Patient consented for TAP block for post surgical pain management. Patient identified, monitors placed, and time out performed. TAP identified bilaterally via ultrasound. Skin prepped bilaterally with [chlorhexidine] and [22g stimuplex] needle advanced to the TAP. [Marcaine 0.22% 35ml] injected under ultrasound guidance on the [left] side. [Marcaine 0.22% 35ml] injected under ultrasound guidance on the [right] side. Negative aspiration every 5mL, No change in heart rate or rhythm. Patient tolerated the procedure well. No apparent complications seen.
[2021-04-26] MEDS: MAGNESIUM SULFATE 40GM/1000ML 40 GM/1,000 ML BAG IV SCH ×2 (05:30→18:17)
[2021-04-26] MEDS: LACTATED RINGERS 1,000 ML IV SCH ×2 (05:34→11:26)
--- NOTE | 2021-04-26 07:08 | Event Note ---
Date: 04/26/21 (MGSO4 continues; s/p section) Pt sleeping Non labored breathing. MGSO4 infusing @ 2gm/hr. Family present in room caring for NB. All concerns addressed. Continue orders.
[2021-04-26] MEDS: ceFAZolin/NS 1 GM/50 ML 1 GM/50 ML BAG IV SCH ×2 (10:15→18:12)
[2021-04-26] MEDS: FERROUS SULFATE 325 MG TAB PO SCH (13:03)
[2021-04-26] MEDS ORDERED: KETOROLAC 30 MG/1 ML INJ IV PRN (14:34)
--- NOTE | 2021-04-26 14:45 | Post Anesthesia Evaluation ---
- Post Anesthesia Evaluation Patient Participated: Yes Airway Patent: Yes Stable Respiratory Function: Yes Nausea/Vomiting: No Temp > 96.8F: Yes Pain Manageable: Yes Adequeate Hydration: Yes Anesthesia Complications: No Block Receding Appropriately: Yes Patient on Ventilator: No
[2021-04-26 18:44] LABS: Hematocrit 27.5 % (30.3-42.9); Hemoglobin 8.9 gm/dl (10.1-14.3)
[2021-04-27] MEDS: LACTATED RINGERS 1,000 ML IV SCH (00:19)
[2021-04-27] MEDS: HYDROcodone/ACETAMINOPHEN 5-325 MG TAB PO PRN ×3 (01:35→17:11)
[2021-04-27] MEDS ORDERED: IBUPROFEN 800 MG TAB PO PRN (04:00)
[2021-04-27] MEDS ORDERED: KETOROLAC 30 MG/1 ML INJ IV PRN (04:00)
[2021-04-27] MEDS: ACETAMINOPHEN 325 MG TAB PO PRN (05:35)
[2021-04-27] MEDS ORDERED: TETANUS,DIPH,PERTUSS(ACELL) VACCINE 0.5 ML SYRINGE IM ONE (06:00)
--- NOTE | 2021-04-27 06:04 | Progress Note ---
Assessment and Plan - Patient Problems (1) delivery delivered Onset Date: ~04/26/21 Current Visit: Yes Status: Acute Plan to address problem: Pt in good spirits Happy to be moving to M/B Will place abdominal binder once upstairs and ambulating. BP 120-110/60-70 H&H 05/27 drop r/t blood loss from surgery Pt is not symptomatic Doing well s/p and PreE MGSO4 X24h completed. P: continue pathway Advance as tolerated. Subjective - Subjective Date of service: 04/27/21 (c/o some incisional pain) Principal diagnosis: Day#1 s/p primary section; PreE MGSO4 completed Patient reports: appetite normal, voiding normally : doing well (Klein draining clear yellow urine; to be removed) Objective - Vital Signs Latest vital signs: Vital Signs Temp Pulse Resp BP Pulse Ox Pulse Ox 04/27/21 05:55 77 100 04/27/21 05:50 71 100 04/27/21 05:45 71 100 04/27/21 05:40 61 100 04/27/21 05:35 72 98 04/27/21 05:30 79 98 04/27/21 05:25 75 99 04/27/21 05:24 75 91 04/27/21 05:20 66 100 04/27/21 05:16 68 127/59 04/27/21 05:15 64 99 04/27/21 05:10 72 97 04/27/21 05:05 76 98 04/27/21 05:00 62 98 04/27/21 04:55 64 99 04/27/21 04:50 67 99 04/27/21 04:45 61 100 04/27/21 04:40 65 99 04/27/21 04:35 70 100 04/27/21 04:30 63 97 04/27/21 04:25 63 100 04/27/21 04:20 65 98 04/27/21 04:16 67 111/55 04/27/21 04:15 68 99 04/27/21 04:10 72 96 04/27/21 04:07 97.8 F 16 04/27/21 04:05 64 99 04/27/21 04:00 64 98 04/27/21 03:55 59 L 98 04/27/21 03:50 62 98 04/27/21 03:45 62 98 04/27/21 03:40 63 98 04/27/21 03:35 60 100 04/27/21 03:30 64 98 04/27/21 03:25 60 98 04/27/21 03:20 58 L 98 04/27/21 03:16 57 L 95/53 04/27/21 03:15 63 97 04/27/21 03:10 76 98 04/27/21 03:05 58 L 97 04/27/21 03:00 63 97 04/27/21 02:55 59 L 97 04/27/21 02:50 59 L 96 04/27/21 02:45 62 98 04/27/21 02:40 65 98 04/27/21 02:35 62 99 04/27/21 02:30 77 98 04/27/21 02:25 74 99 04/27/21 02:20 58 L 97 04/27/21 02:16 59 L 102/54 04/27/21 02:15 65 98 04/27/21 02:10 68 98 04/27/21 02:05 67 99 04/27/21 02:00 83 97 04/27/21 01:55 66 100 04/27/21 01:51 80 89 04/27/21 01:50 80 89 04/27/21 01:45 70 100 04/27/21 01:40 76 100 04/27/21 01:39 99 H 89 04/27/21 01:35 79 99 04/27/21 01:30 69 99 04/27/21 01:25 70 99 04/27/21 01:20 73 98 04/27/21 01:16 77 114/53 04/27/21 01:15 85 97 04/27/21 01:13 72 94 04/27/21 01:10 77 98 04/27/21 01:05 69 100 04/27/21 01:00 65 99 04/27/21 00:56 72 93 04/27/21 00:55 67 98 04/27/21 00:50 69 98 04/27/21 00:45 73 97 04/27/21 00:40 86 98 04/27/21 00:35 70 99 04/27/21 00:30 74 98 04/27/21 00:25 90 85 04/27/21 00:22 86 89 04/27/21 00:20 82 100 04/27/21 00:17 85 93 04/27/21 00:16 85 123/56 04/27/21 00:15 84 98 04/27/21 00:10 84 99 04/27/21 00:05 80 98 04/27/21 00:00 76 98 04/26/21 23:55 69 99 04/26/21 23:50 73 98 04/26/21 23:45 76 98 04/26/21 23:40 77 98 04/26/21 23:36 69 119/58 04/26/21 23:35 70 99 04/26/21 23:33 98 F 16 04/26/21 23:30 78 98 04/26/21 23:25 75 98 04/26/21 23:20 77 98 04/26/21 23:15 94 H 98 04/26/21 23:10 72 99 04/26/21 23:05 74 86 04/26/21 23:04 83 89 04/26/21 23:00 66 98 04/26/21 22:55 76 98 04/26/21 22:50 75 99 04/26/21 22:46 73 90 04/26/21 22:45 73 91 04/26/21 22:40 74 98 04/26/21 22:35 74 96 04/26/21 22:30 69 97 04/26/21 22:28 81 91 04/26/21 22:25 71 100 04/26/21 22:20 71 100 04/26/21 22:16 75 116/55 04/26/21 22:15 76 97 04/26/21 22:10 79 98 04/26/21 22:05 76 96 04/26/21 22:00 61 97 04/26/21 21:55 69 99 04/26/21 21:52 76 89 04/26/21 21:50 77 97 04/26/21 21:45 77 96 04/26/21 21:43 86 93 04/26/21 21:40 72 98 04/26/21 21:35 66 99 04/26/21 21:30 62 99 04/26/21 21:25 66 99 04/26/21 21:20 65 99 04/26/21 21:16 68 118/60 04/26/21 21:15 75 98 04/26/21 21:10 70 99 04/26/21 21:05 77 100 04/26/21 21:00 74 99 04/26/21 20:55 75 100 04/26/21 20:52 86 93 04/26/21 20:50 90 97 04/26/21 20:45 63 99 04/26/21 20:40 69 98 04/26/21 20:35 64 100 04/26/21 20:30 64 98 04/26/21 20:25 78 88 04/26/21 20:24 77 88 04/26/21 20:20 70 99 04/26/21 20:16 62 100/55 04/26/21 20:15 67 99 04/26/21 20:10 64 98 04/26/21 20:05 77 98 04/26/21 20:00 71 96 04/26/21 19:55 68 96 04/26/21 19:50 72 99 04/26/21 19:45 72 97 04/26/21 19:40 70 98 04/26/21 19:35 68 99 04/26/21 19:30 69 98 04/26/21 19:25 74 98 04/26/21 19:20 86 98 04/26/21 19:18 97.7 F 18 98 04/26/21 19:16 68 111/61 04/26/21 19:15 66 98 04/26/21 19:10 73 98 04/26/21 19:05 82 98 04/26/21 19:00 68 98 04/26/21 18:55 76 99 04/26/21 18:50 75 97 04/26/21 18:45 76 98 04/26/21 18:40 83 98 04/26/21 18:35 75 98 04/26/21 18:30 75 98 04/26/21 18:26 71 114/57 04/26/21 18:25 70 98 04/26/21 16:39 71 97 04/26/21 16:33 82 99 04/26/21 16:31 80 94 04/26/21 16:28 90 98 04/26/21 16:24 78 86 04/26/21 16:23 82 89 04/26/21 16:18 73 99 04/26/21 16:13 76 99 04/26/21 16:09 69 97 04/26/21 16:03 83 98 04/26/21 16:02 98.4 F 04/26/21 16:00 74 119/59 04/26/21 15:58 78 98 04/26/21 15:53 76 97 04/26/21 15:49 71 98 04/26/21 15:44 86 98 04/26/21 15:38 79 99 04/26/21 15:33 79 99 04/26/21 15:30 75 123/59 04/26/21 15:28 79 99 04/26/21 15:23 74 98 04/26/21 15:18 84 98 04/26/21 15:13 77 97 04/26/21 15:08 74 96 04/26/21 15:06 81 94 04/26/21 15:04 80 99 04/26/21 15:00 77 114/53 04/26/21 14:58 76 98 04/26/21 14:53 79 99 04/26/21 14:48 71 99 04/26/21 14:43 77 98 04/26/21 14:38 81 99 04/26/21 14:33 82 98 04/26/21 14:30 75 121/58 04/26/21 14:28 74 98 04/26/21 14:23 75 97 04/26/21 14:18 79 98 04/26/21 14:13 80 98 04/26/21 14:08 78 99 04/26/21 14:03 84 97 04/26/21 14:00 76 123/59 04/26/21 13:58 86 97 04/26/21 13:53 87 97 04/26/21 13:48 86 98 04/26/21 13:43 86 95 04/26/21 13:38 82 97 04/26/21 13:33 80 97 04/26/21 13:28 83 99 04/26/21 13:23 73 97 04/26/21 13:18 81 98 04/26/21 13:16 86 94 04/26/21 13:13 86 97 04/26/21 13:08 77 97 04/26/21 13:03 71 98 04/26/21 13:00 78 127/61 04/26/21 12:58 83 97 04/26/21 12:53 88 97 04/26/21 12:48 85 99 04/26/21 12:43 95 H 98 04/26/21 12:38 80 99 04/26/21 12:33 75 98 04/26/21 12:30 78 118/59 04/26/21 12:28 75 96 04/26/21 12:23 76 98 04/26/21 12:18 74 98 04/26/21 12:13 79 98 04/26/21 12:08 84 99 04/26/21 12:03 79 100 04/26/21 12:00 80 104/57 04/26/21 11:58 83 99 04/26/21 11:53 83 97 04/26/21 11:48 86 99 04/26/21 11:46 86 94 04/26/21 11:43 80 99 04/26/21 11:38 84 99 04/26/21 11:33 78 99 04/26/21 11:30 76 108/59 04/26/21 11:28 81 98 04/26/21 11:26 97.9 F 16 99 04/26/21 11:23 100 H 98 04/26/21 11:18 89 98 04/26/21 11:00 100 04/26/21 10:57 90 99 04/26/21 10:52 81 98 04/26/21 10:50 81 94 04/26/21 10:47 77 97 04/26/21 10:42 77 98 04/26/21 10:37 73 97 04/26/21 10:32 76 97 04/26/21 10:30 74 115/58 04/26/21 10:27 79 97 04/26/21 10:22 73 97 04/26/21 10:17 81 95 04/26/21 10:12 73 97 04/26/21 10:07 77 96 04/26/21 10:02 72 97 04/26/21 10:00 72 123/58 04/26/21 09:57 74 97 04/26/21 09:52 74 97 04/26/21 09:47 75 97 04/26/21 09:42 74 97 04/26/21 09:37 94 H 99 04/26/21 09:32 74 97 04/26/21 09:30 75 114/57 04/26/21 09:27 78 97 04/26/21 09:22 80 98 04/26/21 09:17 80 98 04/26/21 09:12 85 98 04/26/21 09:07 78 97 04/26/21 09:02 74 97 04/26/21 09:00 77 108/56 04/26/21 08:57 82 96 04/26/21 08:52 83 97 04/26/21 08:47 76 98 04/26/21 08:42 78 98 04/26/21 08:37 74 97 04/26/21 08:32 83 98 04/26/21 08:30 81 128/56 04/26/21 08:27 92 H 97 04/26/21 08:22 84 97 04/26/21 08:17 80 98 04/26/21 08:12 79 97 04/26/21 08:07 87 98 04/26/21 08:02 89 96 04/26/21 08:00 79 125/53 04/26/21 07:57 78 98 04/26/21 07:52 78 97 04/26/21 07:47 82 98 04/26/21 07:42 82 98 04/26/21 07:37 84 98 04/26/21 07:34 99.4 F 99 04/26/21 07:32 81 99 04/26/21 07:27 80 98 04/26/21 07:24 80 109/59 04/26/21 07:22 82 98 04/26/21 07:17 82 98 04/26/21 07:12 79 100 04/26/21 07:09 78 103/57 04/26/21 07:07 78 99 04/26/21 07:06 84 89 04/26/21 07:02 79 99 04/26/21 06:57 74 99 04/26/21 06:54 75 103/58 04/26/21 06:52 73 99 04/26/21 06:47 75 99 04/26/21 06:42 77 99 04/26/21 06:39 76 101/57 04/26/21 06:37 78 99 04/26/21 06:32 76 99 04/26/21 06:27 85 99 04/26/21 06:24 74 100/52 04/26/21 06:22 73 99 04/26/21 06:21 72 95/50 04/26/21 06:18 72 91/55 04/26/21 06:17 73 99 04/26/21 06:15 73 94/51 04/26/21 06:12 74 95/51 99 04/26/21 06:09 71 97/54 04/26/21 06:07 72 99 04/26/21 06:06 75 96/53 04/26/21 06:03 71 94/52 04/26/21 06:02 71 97 04/26/21 06:00 75 93/53 Intake and Output 04/26/21 04/26/21 04/27/21 14:59 22:59 06:59 Intake Total 50 013.625 0214.917 Output Total 1800 1125 1300 Balance -1750 -485.833 227.917 Intake: IV 50 462.273 7533.917 ANCEF/NS 1 GM/50 ML 1 gm 50 In 50 ml @ 100 mls/hr IV Q8H MYRTLE Rx#:[id number] Lactated Ringers 1,000 ml 966.25 @ 125 mls/hr IV DIRECT MYRTLE Rx#:[id number] MAGNESIUM SULFATE 40GM/ 639.167 561.667 1000ML 40 gm In 1,000 ml @ 2 GM/HR 50 mls/hr IV DIRECT MYRTLE Rx#:[id number] Output: Urine 1800 1125 1300 Indwelling Catheter 1800 1125 1050 Uretheral (Klein) 250 Other: Total, Output Amount 225 200 100 - Exam Breasts: Present: normal Cardiovascular: Present: Regular rate Lungs: Present: Clear to auscultation Abdomen: Present: normal appearance, soft Uterus: Present: normal, fundal height below umbilicus Extremities: Present: normal, edema (1+ LE) Incision: Present: normal, dry, intact - Labs Labs: Abnormal lab results 04/26/21 04/26/21 04/26/21 Range/Units 06:16 13:20 18:25 Hgb 8.9 L (10.1-14.3) gm/dl Hct 27.5 L (30.3-42.9) % Magnesium 3.20 H 4.80 H (1.7-2.3) mg/dL 04/26/21 04/27/21 Range/Units 18:25 00:17 Hgb (10.1-14.3) gm/dl Hct (30.3-42.9) % Magnesium 5.00 H 4.70 H (1.7-2.3) mg/dL
[2021-04-27] MEDS: FERROUS SULFATE 325 MG TAB PO SCH (11:17)
[2021-04-27] MEDS: IBUPROFEN 800 MG TAB PO PRN (12:20)
[2021-04-28] MEDS: HYDROcodone/ACETAMINOPHEN 5-325 MG TAB PO PRN ×2 (03:19→10:17)
--- NOTE | 2021-04-28 07:53 | Progress Note ---
Assessment and Plan - Patient Problems (1) delivery delivered Onset Date: ~04/26/21 Current Visit: Yes Status: Acute Plan to address problem: Pt asking @ abdominal binder RN stated she will assist pt with putting it on. VSS BPs 120-110/60-50 FF below umb Lochia scant Incision D&I H&H stable no s/sx of anemia Doing well s/p section P: d/c today with instructions RTO 1 week postop check, BP check, and son's circumcision. RX on chart Subjective - Subjective Date of service: 04/28/21 (pt agrees with d/c asking for later this afternoon) Principal diagnosis: Day#2 s/p primary section; PreE MGSO4 completed Patient reports: appetite normal, voiding normally, pain well controlled, ambulating normally : doing well Objective - Vital Signs Latest vital signs: Vital Signs Temp Pulse Resp BP BP Pulse Ox Pulse Ox 04/28/21 04:25 78 128/53 04/28/21 00:40 97.9 F 73 20 126/67 99 04/27/21 20:24 98.2 F 65 20 105/51 99 04/27/21 19:35 96 04/27/21 17:43 124/52 04/27/21 17:13 97.5 F L 77 18 114/66 99 04/27/21 17:02 98.0 F 74 18 103/43 100 04/27/21 12:29 97.4 F L 58 L 18 100/53 96 04/27/21 09:35 100 04/27/21 08:23 97.9 F 63 18 105/45 98 Intake and Output 04/27/21 04/28/21 04/28/21 22:59 06:59 14:59 Intake Total 240 600 Output Total 300 Balance -60 600 Intake: Oral 240 600 Output: Urine 300 Void 300 Other: Total, Intake Amount 240 120 Total, Output Amount 300 # Voids Void 1 1 - Exam Breasts: Present: normal Cardiovascular: Present: Regular rate Lungs: Present: Clear to auscultation Abdomen: Present: normal appearance, soft, normal bowel sounds Uterus: Present: normal, fundal height below umbilicus Extremities: Present: normal Deep Tendon Reflex Grade: Normal +2 Incision: Present: normal, dry, intact
--- NOTE | 2021-04-28 07:58 | Discharge Summary ---
Providers - Providers Date of Admission: 04/25/21 08:14 Date of discharge: 04/28/21 (agrees to today) Attending physician: JOSE ALEJANDRO ZAPATA Primary care physician: DANITA LUEVANO Hospitalization Reason for admission: active labor Delivery: Procedure: primary low transverse Episiotomy: none Laceration: none Incision: normal, dry, intact Other procedures: none Discharge diagnosis: IUP at term delivered [place] baby: male Hospital course: uncomplicated section PreE received MGSO4 X 24hr BPs now normotensive Condition at discharge: Good Disposition: DC-01 TO HOME OR SELFCARE - Discharge Diagnoses (1) delivery delivered Status: Acute Comment: RTO 1 week postop care (2) Preeclampsia Status: Acute Qualifiers: Trimester: third trimester Qualified Code(s): O14.93 - Unspecified pre- eclampsia, third trimester Comment: RTO for BP check in one week Plan - Discharge Medications Prescriptions: Docusate Sodium [Colace] 100 mg PO BID PRN #60 capsule PRN Reason: Constipation Lidocain2.5%/Prilocai2.5% [Emla] 2 gm TP ONCE #1 tube Ferrous Sulfate [Feosol 325 MG tab] 325 mg PO QDAY #60 tablet Ibuprofen [Motrin 800 MG tab] 800 mg PO Q8HR PRN #30 tablet PRN Reason: Pain, Moderate (4-6) oxyCODONE /ACETAMINOPHEN [Percocet 5/325] 1 tab PO Q4HR #30 tab - Provider Discharge Summary Activity: routine, no sex for 6 weeks, no heavy lifting 4 weeks, no strenuous exercise Diet: routine Instructions: routine Additional instructions: [] Smoking cessation referral if applicable(refer to patient education folder for contact #) [] Refer to [facility] Booklet Call your doctor immediately for: * Fever > 100.5 * Heavy vaginal bleeding ( >1 pad per hour) * Severe persistent headache * Shortness of breath * Reddened, hot, painful area to leg or breast * Drainage or odor from incision. * Keep incision clean and dry at all times and follow doctor's instructions regarding bathing/showering - Follow up plan Follow up: DANITA LUEVANO MD [Primary Care Provider] - 7 Days (Congratulations! Please call [phone] to schedule your postoperative visit and tour son's circumcision in 1 week. Bring the EMLA cream with you to his visit. Do NOT use at home. Take medications as prescribed. Call with headache not relieved with Tylenol, blurred vision, chest pain. Continue your vitamins. Increase your dietary iron. Call with any concerns.)
[2021-04-28] MEDS: IBUPROFEN 800 MG TAB PO PRN (09:00)
[2021-04-28] MEDS: FERROUS SULFATE 325 MG TAB PO SCH (10:17)
[2021-04-28 14:31] VITALS: BP 133/70
== END 2021-04-28 14:50 | disposition home or self-care (01) | DRG 765 ==
LOC: LD 08:14 → OB 04-27 06:02
PROVIDERS: ADMIT Obstetrics & Gynecology; ATTEND Obstetrics & Gynecology
PROC: 10D00Z1 Extraction of Products of Conception, Low, Open Approach (ICD-10-PCS; principal; 2021-04-26)
PROC: 3E0T3BZ Introduction of Anesthetic Agent into Peripheral Nerves and Plexi, Percutaneous Approach (ICD-10-PCS; 2021-04-26)
PROC: 3E0234Z Introduction of Serum, Toxoid and Vaccine into Muscle, Percutaneous Approach (ICD-10-PCS; 2021-04-27)
DX: O48.0 Post-term pregnancy (principal); D62 Acute posthemorrhagic anemia; Z3A.41 41 weeks gestation of pregnancy; Z37.0 Single live birth; Z20.822 Contact with and (suspected) exposure to COVID-19; Z23 Encounter for immunization; O99.62 Diseases of the digestive system complicating childbirth; O99.214 Obesity complicating childbirth; O99.02 Anemia complicating childbirth; K21.9 Gastro-esophageal reflux disease without esophagitis; O14.94 Unspecified pre-eclampsia, complicating childbirth; O76 Abnormality in fetal heart rate and rhythm complicating labor and delivery; O34.13 Maternal care for benign tumor of corpus uteri, third trimester; D25.9 Leiomyoma of uterus, unspecified
CPT/HCPCS: 36415; 82565; 83615; 83735; 84450; 84460; 84550; 85014; 85018; 85027; 86592; 86850; 86900; 86901; 88307; 96366; 99211; G0378; G0463; J0690; J1100; J1885; J2370; J2405; J2590; J2765; J3475; J7120; U0003